=== PATIENT | male | born 1950 | race African-American/Black ===

== ENCOUNTER 2016-10-03 11:30 | Emergency (ER) | payer OTHER ==
--- NOTE | 2016-10-03 12:07 | EDPHY ---
H & P Stated Complaint: Lower back pain, Gout in hand, wants pain. Time Seen by Provider: 10/03/16 11:52 HPI/ROS: CHIEF COMPLAINT: Low back pain HISTORY OF PRESENT ILLNESS: Patient is a 66-year-old man who comes to the emergency department complaining of low back pain. He is requesting pain medication. He denies any recent trauma or injury. He states that he has chronic pain because of his 40 years of skateboarding. He has not had any surgeries or procedures. His pain is to the left of midline of the lumbar region. It does not radiate down his leg. It hurts worse with twisting or bending. No fevers or swelling. REVIEW OF SYSTEMS: Constitutional: denies: chills, fever, recent illness, recent injury EENTM: denies: blurred vision, double vision, nose congestion Respiratory: denies: cough, shortness of breath Cardiac: denies: chest pain, irregular heart rate, lightheadedness, palpitations Gastrointestinal/Abdominal: denies: abdominal pain, diarrhea, nausea, vomiting, blood streaked stools Genitourinary: denies: dysuria, frequency, hematuria, pain Musculoskeletal: See HPI Skin: denies: lesions, rash, jaundice, bruising Neurological: denies: headache, numbness, paresthesia, tingling, dizziness, weakness Hematologic/Lymphatic: denies: blood clots, easy bleeding, easy bruising Immunologic/allergic: denies: HIV/AIDS, transplant EXAM: GENERAL: Well-appearing, well-nourished and in no acute distress. HEAD: Atraumatic, normocephalic. EYES: Pupils equal round and reactive to light, extraocular movements intact, sclera anicteric, conjunctiva are normal. ENT: TMs normal, nares patent, oropharynx clear without exudates. Moist mucous membranes. NECK: Normal range of motion, supple without lymphadenopathy or JVD. LUNGS: Breath sounds clear to auscultation bilaterally and equal. No wheezes rales or rhonchi. HEART: Regular rate and rhythm without murmurs, rubs or gallops. ABDOMEN: Soft, nontender, normoactive bowel sounds. No guarding, no rebound. No masses appreciated. BACK: Left lower lumbar muscular pain, no tenderness. No deformity. no spinal tenderness, step-offs or deformities EXTREMITIES: Normal range of motion, no pitting or edema. No clubbing or cyanosis. NEUROLOGICAL: Cranial nerves II through XII grossly intact. Normal speech, normal gait. 5/5 strength, normal movement in all extremities, normal sensation PSYCH: Normal mood, normal affect. SKIN: Warm, dry, normal turgor, no visible rashes or lesions. Source: Patient - Personal History Current Tetanus/Diphtheria Vaccine: Unsure Current Tetanus Diphtheria and Acellular Pertussis (TDAP): Unsure - Medical/Surgical History Hx Asthma: No Hx Chronic Respiratory Disease: No Hx Diabetes: No Hx Cardiac Disease: No Hx Renal Disease: No Hx Cirrhosis: No Hx Alcoholism: No Hx HIV/AIDS: No Hx Splenectomy or Spleen Trauma: No Other PMH: Chronic back pain, gout, Hep C-2015, drug abuse till 1983. - Family History Significant Family History: Hypertension - Social History Smoking Status: Never smoked Alcohol Use: Sober Drug Use: None Constitutional: Initial Vital Signs Temperature (C) 36.8 C 10/03/16 11:37 Heart Rate 81 10/03/16 11:37 Respiratory Rate 16 10/03/16 11:37 O2 Sat (%) 96 10/03/16 11:37 O2 Delivery Mode Room Air Allergies/Adverse Reactions: No Known Allergies Allergy (Unverified 10/03/16 11:44) Home Medications: Medication Instructions Recorded Lidocaine 5% [Lidoderm 5% Patch 1 ea TD DAILY #7 patch 10/03/16 (*)] Medical Decision Making ED Course/Re-evaluation: We discussed narcotic policy. The patient would like to stay away from narcotics any ways. He has a history of abuse. Will treat him with a lidoderm patch. He has an MRI scheduled on Wednesday and follow up with his regular doctor then. We discussed indications for returning. He does not have any bowel or bladder abnormalities. Does not have any neurologic deficits. Differential Diagnosis: Partial list of the Differential diagnosis considered include but were not limited to; musculoskeletal pain, radiculopathy and although unlikely based on the history and physical exam, I also considered kidney stone, shingles, fracture, infection, cancer. I discussed these differential diagnoses and the plan with the patient as well as the usual and expected course. The patient understands that the diagnosis is provisional and that in medicine we are not always correct and that further workup is often warranted. Usual and customary warnings were given. All of the patient's questions were answered. The patient was instructed to return to the emergency department should the symptoms at all worsen or return, otherwise to followup with the physician as we discussed. - Data Points Medications Given: Discontinued Medications Lidocaine (Lidoderm 5%) 1 ea TD DAILY NESTOR Stop: 04/01/17 12:29 Last Admin: 10/03/16 12:37 Dose: 1 ea Departure - Departure Disposition: Home, Routine, Self-Care Clinical Impression: Low back pain Qualifiers: Chronicity: acute Back pain laterality: left Sciatica presence: without sciatica Qualified Code(s): M54.5 - Low back pain Condition: Fair Instructions: Low Back Strain (ED) Referrals: Faisal Herrera MD [Primary Care Provider] - As per Instructions Prescriptions: Lidocaine 5% [Lidoderm 5% Patch (*)] 1 ea TD DAILY #7 patch
[2016-10-03] MEDS ORDERED: LIDOCAINE 5% 1 EA PATCH TD SCH (12:30)
[2016-10-03 12:37] VITALS: BP 145/67; PULSE 87; RESP 18; TEMP 98.1; O2SAT 95
[2016-10-03] MEDS ORDERED: PATCH REMOVAL 1 EA PATCH TD SCH (21:00)
== END 2016-10-03 12:42 | disposition home or self-care (01) ==
DX: M54.5 Low back pain (principal)

== ENCOUNTER → 2016-10-07 | Outpatient (CLI) | payer OTHER ==
[~2016-10-07] MED LIST: GADOBUTROL 10 ML VIAL IVP ONE
== END ==
LOC: FIMAGING 19:34
PROVIDERS: ATTEND Internal Medicine
DX: K76.89 Other specified diseases of liver (principal); B18.2 Chronic viral hepatitis C
CPT/HCPCS: 74183; A9585

== ENCOUNTER → 2016-11-12 | Outpatient (CLI) | payer OTHER | LOC: BRMIMAGING 12:14 | PROVIDERS: ATTEND Internal Medicine | DX: M19.041 Primary osteoarthritis, right hand (principal); M19.042 Primary osteoarthritis, left hand | CPT/HCPCS: 73130-PO; 73630-PO ==

== ENCOUNTER 2017-03-11 09:21 | Emergency (ER) | payer OTHER ==
[2017-03-11 09:29] VITALS: O2SAT 97
--- NOTE | 2017-03-11 09:50 | EDPHY ---
H & P Time Seen by Provider: 03/11/17 09:34 HPI/ROS: CHIEF COMPLAINT: Bright red rectal bleeding HISTORY OF PRESENT ILLNESS: Patient completed treatment for hepatitis C in September of this year. He said multiple symptoms subsequent to that he thinks may be related to that treatment including development of polyarthralgias and pain in his feet. He presents today the because of intermittent bright red rectal bleeding over the past 3 weeks which is worse over the past 3 days. Blood is bright red and only with bowel movement. No rectal or abdominal pain or vomiting. No melena. Symptoms mild but persistent. Not associated with dizziness or lightheadedness. REVIEW OF SYSTEMS: Eye: no change in vision ENT: no sore throat Cardiac: no chest pain or syncope Pulmonary: no cough or SOB Abdomen: HPI Musculoskeletal: Polyarthralgias as described above, stable. Pain in both feet. Skin: no rash Neuro: no headache Constitutional: no fever : no urinary symptoms A comprehensive 10 point review of systems is otherwise negative aside from elements mentioned in the history of present illness. PAST MEDICAL HISTORY: Includes hepatitis-C, chronic back pain, gout. Social history: Primary care in [place] General Appearance: Alert and conversant, cooperative. Eyes: No scleral icterus. ENT, Mouth: Normal mucous membranes. Respiratory: Normal respiratory effort, breath sounds equal, lungs are clear to auscultation. Cardiovascular: Regular rate and rhythm. Gastrointestinal: Abdomen is soft and non tender. Rectal exam performed with anoscope shows inflamed internal hemorrhoids with some slight bruising but no bleeding proximal to the tip of the scope. Neurological: Alert and oriented x3. Normally conversant. Face symmetric, normal movement and sensation in all extremities. Skin: Warm and dry, no rashes. Musculoskeletal: No peripheral edema and no joint swelling. Psychiatric: Not agitated. Emergency Department course/MDM: Likely internal hemorrhoids. Plan to check CBC. He has seen Dr. Hawthorne from [facility] in the past. 1045: Noted normal hematocrit, platelets low but not a new finding. I think thrombocytopenia is unlikely reason for his symptoms. I think unlikely to be acute upper or lower GI bleed. Nonsurgical abdomen on exam. Smoking Status: Never smoked Constitutional: Initial Vital Signs Temperature (C) 36.6 C 03/11/17 09:26 Heart Rate 65 03/11/17 09:26 Respiratory Rate 16 03/11/17 09:26 Blood Pressure 136/80 H 03/11/17 09:26 O2 Sat (%) 97 03/11/17 09:26 O2 Delivery Mode Room Air Allergies/Adverse Reactions: No Known Allergies Allergy (Verified 03/11/17 09:24) Home Medications: Medication Instructions Recorded Hydrocortisone Acetate [Anucort-Hc] 25 mg RC DAILY #7 supp.rect 03/11/17 Medical Decision Making - Data Points Laboratory Results: Laboratory Results 03/11/17 10:00 03/11/17 10:00 03/11/17 03/11/17 10:00 10:00 WBC 7.67 10^3/uL 10^3/uL (3.80-9.50) RBC 4.85 10^6/uL 10^6/uL (4.40-6.38) Hgb 15.5 g/dL g/dL (13.7-17.5) Hct 44.4 % % (40.0-51.0) MCV 91.5 fL fL (81.5-99.8) MCH 32.0 pg pg (27.9-34.1) MCHC 34.9 g/dL g/dL (32.4-36.7) RDW 13.3 % % (11.5-15.2) Plt Count 72 10^3/uL L 10^3/uL (150-400) MPV 10.5 fL fL (8.7-11.7) Neut % (Auto) 64.6 % % (39.3-74.2) Lymph % (Auto) 27.6 % % (15.0-45.0) [place] % (Auto) 5.6 % % (4.5-13.0) Eos % (Auto) 1.7 % % (0.6-7.6) Baso % (Auto) 0.4 % % (0.3-1.7) Nucleat RBC Rel Count 0.0 % % (0.0-0.2) Absolute Neuts (auto) 4.95 10^3/uL 10^3/uL (1.70-6.50) Absolute Lymphs (auto) 2.12 10^3/uL 10^3/uL (1.00-3.00) Absolute Monos (auto) 0.43 10^3/uL 10^3/uL (0.30-0.80) Absolute Eos (auto) 0.13 10^3/uL 10^3/uL (0.03-0.40) Absolute Basos (auto) 0.03 10^3/uL 10^3/uL (0.02-0.10) Absolute Nucleated RBC 0.00 10^3/uL 10^3/uL (0-0.01) Immature Gran % 0.1 % % (0.0-1.1) Immature Gran # 0.01 10^3/uL 10^3/uL (0.00-0.10) Sodium 143 mEq/L mEq/L (134-144) Potassium 4.0 mEq/L mEq/L (3.5-5.2) Chloride 104 mEq/L mEq/L (97-110) Carbon Dioxide 26 mEq/l mEq/l (22-31) Anion Gap 13 mEq/L mEq/L (8-16) BUN 11 mg/dL mg/dL (7-23) Creatinine 0.9 mg/dL mg/dL (0.7-1.3) Estimated GFR > 60 Glucose 86 mg/dL mg/dL (70-100) Calcium 9.4 mg/dL mg/dL (8.5-10.4) Departure - Departure Disposition: Home, Routine, Self-Care Clinical Impression: Internal hemorrhoid, bleeding Condition: Good Instructions: Rectal Bleeding (ED) Referrals: Tiffany Lopez MD [Primary Care Provider] - As per Instructions Krishan Hawthorne [Medical Doctor] - As per Instructions Prescriptions: Hydrocortisone Acetate [Anucort-Hc] 25 mg RC DAILY #7 supp.rect
[2017-03-11 10:06] LABS: % IMMATURE GRANULYOCYTES 0.1 % (0.0-1.1); ABSOLUTE IMMATURE GRANULOCYTES 0.01 10^3/uL (0.00-0.10); ADD DIFF? NO; ADD MORPH? NO; ADD SCAN? NO; ATYPICAL LYMPHOCYTE FLAG 10 (0-99); FRAGMENT RBC FLAG 0 (0-99); HEMATOCRIT 44.4 % (40.0-51.0); HEMOGLOBIN 15.5 g/dL (13.7-17.5); LEFT SHIFT FLG 0 (0-99); LIPEMIA HEMOLYSIS FLAG 90 (0-99); MEAN CELL HEMOGLOBIN CONCENTR. 34.9 g/dL (32.4-36.7); MEAN CELL VOLUME 91.5 fL (81.5-99.8); MEAN PLATELET VOLUME 10.5 fL (8.7-11.7); PLATELET CLUMPS FLAG 10 (0-99); PLATELET COUNT 72 10^3/uL (150-400); RED BLOOD CELL COUNT 4.85 10^6/uL (4.40-6.38); RED CELL DISTRIBUTION WIDTH 13.3 % (11.5-15.2)
[2017-03-11 10:24] LABS: ANION GAP 13 mEq/L (8-16); CALCIUM 9.4 mg/dL (8.5-10.4); CARBON DIOXIDE 26 mEq/l (22-31); CHLORIDE 104 mEq/L (97-110); CREATININE 0.9 mg/dL (0.7-1.3); GLOMERULAR FILTRATION RATE > 60; GLUCOSE 86 mg/dL (70-100); SODIUM 143 mEq/L (134-144)
[2017-03-11 10:56] VITALS: BP 170/92; PULSE 82; RESP 18; TEMP 98.2
== END 2017-03-11 10:53 | disposition home or self-care (01) ==
DX: K64.8 Other hemorrhoids (principal)

== ENCOUNTER → 2017-05-12 | Outpatient (CLI) | payer OTHER | LOC: FIMAGING 08:37 | PROVIDERS: ATTEND Internal Medicine | DX: K76.89 Other specified diseases of liver (principal); B18.2 Chronic viral hepatitis C ==

== ENCOUNTER 2017-09-17 10:46 | Emergency (ER) | payer OTHER ==
[2017-09-17] MEDS ORDERED: IBUPROFEN 600 MG TAB PO ONE (12:18)
[2017-09-17] MEDS ORDERED: ONDANSETRON 4 MG/2 ML VIAL IVP ONE (13:06)
[2017-09-17] MEDS ORDERED: KETAMINE 200 MG/20 ML VIAL IVP ONE (13:06)
--- NOTE | 2017-09-17 13:09 | EDPHY ---
H & P Stated Complaint: BACK AND JOINT PAIN. Time Seen by Provider: 09/17/17 12:59 HPI/ROS: CHIEF COMPLAINT: Left flank pain HISTORY OF PRESENT ILLNESS: Patient is a 67-year-old man who comes to the emergency department complaining of left flank pain that radiates to his groin. He states that he has been peeing frequently throughout the night but that it is been clear. No fever. No nausea vomiting. No chest pain. He has never had kidney stones before. He does complain of chronic back pain as well as ankle and joint pain in his hands that he contributes [facility]. He has never had hernia. No discharge. REVIEW OF SYSTEMS: Constitutional: denies: chills, fever, recent illness, recent injury EENTM: denies: blurred vision, double vision, nose congestion Respiratory: denies: cough, shortness of breath Cardiac: denies: chest pain, irregular heart rate, lightheadedness, palpitations Gastrointestinal/Abdominal: denies: abdominal pain, diarrhea, nausea, vomiting, blood streaked stools Genitourinary: denies: dysuria, frequency, hematuria, pain Musculoskeletal: See HPI Skin: denies: lesions, rash, jaundice, bruising Neurological: denies: headache, numbness, paresthesia, tingling, dizziness, weakness Hematologic/Lymphatic: denies: blood clots, easy bleeding, easy bruising Immunologic/allergic: denies: HIV/AIDS, transplant EXAM: GENERAL: Well-appearing, well-nourished and in no acute distress. HEAD: Atraumatic, normocephalic. EYES: Pupils equal round and reactive to light, extraocular movements intact, sclera anicteric, conjunctiva are normal. ENT: TMs normal, nares patent, oropharynx clear without exudates. Moist mucous membranes. NECK: Normal range of motion, supple without lymphadenopathy or JVD. LUNGS: Breath sounds clear to auscultation bilaterally and equal. No wheezes rales or rhonchi. HEART: Regular rate and rhythm without murmurs, rubs or gallops. ABDOMEN: Soft, nontender, normoactive bowel sounds. No guarding, no rebound. No masses appreciated. BACK: No CVA tenderness but pain on left side, no spinal tenderness, step-offs or deformities EXTREMITIES: Normal range of motion, no pitting or edema. No clubbing or cyanosis. NEUROLOGICAL: Cranial nerves II through XII grossly intact. Normal speech, normal gait. 5/5 strength, normal movement in all extremities, normal sensation PSYCH: Normal mood, normal affect. SKIN: Warm, dry, normal turgor, no visible rashes or lesions. Source: Patient Exam Limitations: No limitations - Personal History Current Tetanus/Diphtheria Vaccine: Yes Current Tetanus Diphtheria and Acellular Pertussis (TDAP): Yes - Medical/Surgical History Hx Asthma: No Hx Chronic Respiratory Disease: No Hx Diabetes: No Hx Cardiac Disease: No Hx Renal Disease: No Hx Cirrhosis: No Hx Alcoholism: No Hx HIV/AIDS: No Hx Splenectomy or Spleen Trauma: No Other PMH: Chronic back pain, gout, Hep C-2015 treated with [facility], drug abuse till 1983. - Family History Significant Family History: No pertinent family hx - Social History Smoking Status: Never smoked Alcohol Use: Sober Drug Use: Marijuana Constitutional: Initial Vital Signs Temperature (C) 37.2 C 09/17/17 10:55 Heart Rate 77 09/17/17 10:55 Respiratory Rate 19 09/17/17 10:55 Blood Pressure 154/116 H 09/17/17 10:55 O2 Sat (%) 99 09/17/17 10:55 O2 Delivery Mode Room Air Allergies/Adverse Reactions: No Known Allergies Allergy (Verified 03/11/17 09:24) Home Medications: Medication Instructions Recorded predniSONE 60 mg PO DAILY #15 tab 09/17/17 Medical Decision Making - Diagnostics EKG Interpretation: An EKG obtained and was read and documented in trace view. Please see trace view for full reading and report. Sinus rhythm the no acute ischemic changes, repolarization abnormality in V3 and V4. Imaging: Discussed imaging studies w/ motor bike mechanic Radiologist ED Course/Re-evaluation: We discussed the patient's lab and imaging results which are reassuring. He feels much better after ketamine. He does have a lot of degeneration in his back. I will prescribe him a course of steroids and have him follow up with a back specialist. The patient is happy with this plan and declines further workup. He does not wish to take narcotics because he needs to stay alert to take care of his . Differential Diagnosis: Partial list of the Differential diagnosis considered include but were not limited to; low back pain, kidney stone, urinary tract infection and although unlikely based on the history and physical exam, I also considered radiculopathy , spinal cord injury, compression, infection, abscess. I discussed these differential diagnoses and the plan with the patient as well as the usual and expected course. The patient understands that the diagnosis is provisional and that in medicine we are not always correct and that further workup is often warranted. Usual and customary warnings were given. All of the patient's questions were answered. The patient was instructed to return to the emergency department should the symptoms at all worsen or return, otherwise to followup with the physician as we discussed. - Data Points Laboratory Results: Laboratory Results 09/17/17 13:24 09/17/17 13:24 Medications Given: Discontinued Medications Ibuprofen (Motrin) 600 mg PO EDNOW ONE Stop: 09/17/17 12:19 Last Admin: 09/17/17 12:37 Dose: 600 mg Ketamine HCl (Ketamine) 16.3 mg 0.2 mg/kg (16.3 mg) IVP EDNOW ONE Stop: 09/17/17 13:07 Last Admin: 09/17/17 13:35 Dose: 16.3 mg Ondansetron HCl (Zofran) 4 mg IVP EDNOW ONE Stop: 09/17/17 13:07 Last Admin: 09/17/17 13:35 Dose: 4 mg Departure - Departure Disposition: Home, Routine, Self-Care Clinical Impression: Low back pain Qualifiers: Chronicity: acute Back pain laterality: left Sciatica presence: without sciatica Qualified Code(s): M54.5 - Low back pain Condition: Fair Instructions: Acute Low Back Pain (ED) Referrals: Tiffany Lopez MD [Primary Care Provider] - As per Instructions Prescriptions: predniSONE 60 mg PO DAILY #15 tab
[2017-09-17 13:29] LABS: PLATELET COUNT 85 10^3/uL (150-400)
[2017-09-17 13:37] LABS: INR 1.08 (0.83-1.16); PROTIME(PATIENT) 14.2 SEC (12.0-15.0)
--- NOTE | 2017-09-17 13:51 | CPEKG ---
Heart Rate: 69 RR Interval: 870 P-R Interval: 152 QRSD Interval: 76 QT Interval: 368 QTC Interval: 395 P [place]: 79 QRS [place]: -9 T Wave [place]: 22 EKG Severity - NORMAL ECG - EKG Impression: SINUS RHYTHM Electronically Signed By: Benjamín Rosario 17-Sep-2017 13:56:14
[2017-09-17 15:14] VITALS: BP 167/97; PULSE 78; RESP 18; TEMP 97.9; O2SAT 97
== END 2017-09-17 15:20 | disposition home or self-care (01) ==
DX: M54.5 Low back pain (principal)
CPT/HCPCS: 74176; 93005; 96374; 96375; 99285; J2405